=== PATIENT | male | born 1980 | race African-American/Black ===

== ENCOUNTER 2023-06-03 09:43 | Emergency (ER) | payer OTHER ==
[2023-06-03 09:53] VITALS: BP 143/84; PULSE 102; RESP 18; TEMP 98.3; BMI 40.4
[2023-06-03] MEDS ORDERED: IBUPROFEN 600 MG TABLET (FP) PO ONE ×2 (10:07→10:18)
== END 2023-06-03 12:08 | disposition home or self-care (01) ==
LOC: FER 09:43
DX: N49.2 Inflammatory disorders of scrotum (principal)
CPT/HCPCS: 76870-TC; 99284-25